=== PATIENT | female | born 1980 | race Caucasian/White ===

== ENCOUNTER → 2016-10-05 | Emergency (ER) | payer MEDICAID ==
[~2016-10-05] VITALS: Ht 157.5 cm; Wt 86.2 kg
[2016-10-05 21:34] LABS: microscopic required? NO
[2016-10-05 21:41] LABS: UA SPECIFIC GRAVITY <=1.005 (1.005-1.035)
[2016-10-05 21:42] LABS: urine erythrocyte NEGATIVE (NEGATIVE)
[2016-10-05 21:46] LABS: BASOPHIL % 0.3 % (0-2); PLATELET COUNT 305 x10^3mcL (130-400); RED CELL DISTRIBUTION WIDTH 13.5 % (11.5-14.5)
[2016-10-05 22:09] LABS: CALCIUM 8.8 mg/dL (8.5-10.1); CARBON DIOXIDE 26.7 mmol/L (21-32); CHLORIDE SERUM 104 mmol/L (98-107); CREATININE SERUM 0.7 mg/dL (0.6-1.0); GFR1 > 60 mL/min; GLUCOSE SERUM 93 mg/dL (74-106); SODIUM SERUM 141 mmol/L (136-145)
[2016-10-05 22:14] LABS: ALBUMIN 3.5 g/dL (3.4-5.0); ALKALINE PHOSPHATASE 82 U/L (46-116); ALT/SGPT 38 U/L (14-59); AMYLASE 87 U/L (25-115); AST/SGOT 20 U/L (15-37); BILIRUBIN TOTAL 0.3 mg/dL (0.20-1.00); LIPASE 157 IU/L (73-393); TOTAL PROTEIN, SERUM 7.2 g/dL (6.4-8.2)
[2016-10-06 01:15] VITALS: BP 112/70
== END ==
LOC: ED 20:54
PROVIDERS: Emergency Medicine
DX: N13.2 Hydronephrosis with renal and ureteral calculous obstruction (principal); Z85.3 Personal history of malignant neoplasm of breast; Z92.21 Personal history of antineoplastic chemotherapy
CPT/HCPCS: 83880; J1885; J3010; J7030; Q9967

== ENCOUNTER 2016-11-08 20:57 | Emergency (ER) | payer MEDICAID ==
[2016-11-08 22:22] LABS: CALCIUM 9.1 mg/dL (8.5-10.1); CARBON DIOXIDE 24.6 mmol/L (21-32); CHLORIDE SERUM 104 mmol/L (98-107); CREATININE SERUM 0.8 mg/dL (0.6-1.0); GFR1 > 60 mL/min; GLUCOSE SERUM 95 mg/dL (74-106); POTASSIUM SERUM 3.7 mmol/L (3.5-5.1); SODIUM SERUM 140 mmol/L (136-145)
[2016-11-08 22:27] LABS: BASOPHIL % 0.7 % (0-2); PLATELET COUNT 340 x10^3mcL (130-400); RED CELL DISTRIBUTION WIDTH 13.4 % (11.5-14.5)
[2016-11-08 22:28] LABS: ALBUMIN 3.9 g/dL (3.4-5.0); ALKALINE PHOSPHATASE 81 U/L (46-116); ALT/SGPT 3 U/L (14-59); AST/SGOT 19 U/L (15-37); BILIRUBIN TOTAL 0.43 mg/dL (0.20-1.00); TOTAL PROTEIN, SERUM 7.9 g/dL (6.4-8.2)
[2016-11-08 23:19] VITALS: BP 132/69
== END 2016-11-08 23:28 | disposition home or self-care (01) ==
LOC: ED 20:57
PROVIDERS: Emergency Medicine
DX: R07.9 Chest pain, unspecified (principal); Z85.9 Personal history of malignant neoplasm, unspecified
CPT/HCPCS: 36415; 83880; 85378; J1885; Q0092

== ENCOUNTER 2017-02-16 12:05 | Emergency (ER) | payer MEDICAID ==
[~2017-02-16] VITALS: Ht 157.5 cm; Wt 85.0 kg
[2017-02-16 13:37] LABS: BASOPHIL % 0.5 % (0-2); PLATELET COUNT 320 x10^3mcL (130-400); RED CELL DISTRIBUTION WIDTH 13.7 % (11.5-14.5)
[2017-02-16 14:14] LABS: CALCIUM 8.3 mg/dL (8.5-10.1); CARBON DIOXIDE 26.3 mmol/L (21-32); CHLORIDE SERUM 104 mmol/L (98-107); CREATININE SERUM 0.7 mg/dL (0.6-1.0); GFR1 > 60 mL/min; GLUCOSE SERUM 117 mg/dL (74-106); POTASSIUM SERUM 3.5 mmol/L (3.5-5.1); SODIUM SERUM 140 mmol/L (136-145)
[2017-02-16 14:16] LABS: UA SPECIFIC GRAVITY 1.015 (1.005-1.035); microscopic required? YES; urine erythrocyte TRACE (NEGATIVE)
[2017-02-16 14:19] LABS: ALKALINE PHOSPHATASE 102 U/L (46-116); ALT/SGPT 45 U/L (14-59); AST/SGOT 26 U/L (15-37); BILIRUBIN TOTAL 0.6 mg/dL (0.20-1.00); TOTAL PROTEIN, SERUM 7.1 g/dL (6.4-8.2)
[2017-02-16 14:21] LABS: ALBUMIN 3.3 g/dL (3.4-5.0)
[2017-02-16 15:50] VITALS: BP 122/77
== END 2017-02-16 15:50 | disposition home or self-care (01) ==
LOC: ED 12:05
PROVIDERS: Emergency Medicine
DX: C50.919 Malignant neoplasm of unspecified site of unspecified female breast (principal)
CPT/HCPCS: Q0092

== ENCOUNTER 2017-02-24 13:26 | Emergency (ER) | payer MEDICAID ==
[2017-02-24 15:00] VITALS: BP 124/68
== END 2017-02-24 15:00 | disposition home or self-care (01) ==
LOC: ED 13:26
DX: J01.90 Acute sinusitis, unspecified (principal)